=== PATIENT | male | born 2000 | race Caucasian/White ===

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

== ENCOUNTER 2024-07-16 11:42 | Emergency (ER) | payer OTHER, SELFPAY ==
[2024-07-16 12:13] VITALS: BP 142/94; PULSE 70; RESP 16; TEMP 36.6; O2SAT 100
--- NOTE | 2024-07-16 13:01 | ED_ITS ---
HPI - General Adult General Chief complaint: Upper Respiratory Infection Stated complaint: Sore Throat Source: patient Mode of arrival: ambulatory Limitations: no limitations History of Present Illness HPI narrative: Patient presents for evaluation of sore throat. Symptom onset this morning. 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 No fever, chills, cough, SOB, body aches, shortness of breath, nausea, vomiting or diarrhea. He is not taking any medications for his symptoms. He does not smoke. Related Data Allergies Allergy/AdvReac Type Severity Reaction Status Date / Time Penicillins Allergy Rash Verified 07/16/24 12:40 Review of Systems Review of Systems: CONSTITUTIONAL: Denies fever, chills, or sweats. EYES: Denies visual changes, redness, or discharge. ENT: Reports sore throat. Denies rhinorrhea, congestion, or otalgia. CARDIOVASCULAR: Denies chest pain, palpitations, or edema. RESPIRATORY: Denies cough or dyspnea. GASTROINTESTINAL: Denies abdominal pain, nausea, vomiting, or diarrhea. GENITOURINARY: Denies dysuria or hematuria. SKIN: Denies rash or itching. MUSCULOSKELETAL: Denies back pain, joint pain, or myalgia. NEUROLOGIC: Denies headache, numbness, dizziness, or weakness. PSYCHIATRIC: Denies anxiety or depression. 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 HEAD: Normocephalic, atraumatic. EYES: PERRLA and EOMI. ENT: Nares clear, no rhinorrhea or epistaxis. Mucous membranes moist. Posterior pharyngeal erythema without exudate. Uvula is midline. Bilateral TMs pearly bhakta nonbulging NECK: Supple. No adenopathy or masses. No carotid bruits or JVD CHEST: Clear to auscultation. No respiratory distress. No wheezes rales or rhonchi HEART: Regular rate and rhythm. No murmur heard. Normal peripheral pulses. ABDOMEN: Soft, nontender, nondistended, normal active bowel sounds. EXTREMITIES: Normal range of motion. No edema. SKIN: Warm, dry, no rash. NEURO: No focal deficits. Alert and oriented x3. PSYCH: Normal mood and affect. Course Course Emergency Course: This is a 24-year-old male who presented for evaluation of sore throat. Rapid strep positive. Although he has a penicillin allergy, he indicates he can tolerate amoxicillin. Increase hydration. Complete antibiotics as directed. Cepacol lozenges and ibuprofen may help with pain. Follow up with primary provider. Go to the ER for worsening symptoms. Pt in agreement with plan of care. Level of Care: Express Care Visit Vital Signs Vital signs: Vital Signs Temperature 36.6 C 07/16/24 12:13 Pulse Rate 70 07/16/24 12:13 Respiratory Rate 16 07/16/24 12:13 Blood Pressure 142/94 H 07/16/24 12:13 Pulse Oximetry 100 07/16/24 12:13 Temperature 36.6 C 07/16/24 12:13 Pulse Rate 70 07/16/24 12:13 Respiratory Rate 16 07/16/24 12:13 Blood Pressure 142/94 H 07/16/24 12:13 Pulse Oximetry 100 07/16/24 12:13 Medical Decision Making Vital Signs Vital Signs: Vital Signs Temperature 36.6 C 07/16/24 12:13 Pulse Rate 70 07/16/24 12:13 Respiratory Rate 16 07/16/24 12:13 Blood Pressure 142/94 H 07/16/24 12:13 Pulse Oximetry 100 07/16/24 12:13 Temperature 36.6 C 07/16/24 12:13 Pulse Rate 70 07/16/24 12:13 Respiratory Rate 16 07/16/24 12:13 Blood Pressure 142/94 H 07/16/24 12:13 Pulse Oximetry 100 07/16/24 12:13 Lab Data Labs: Lab Results 07/16/24 Range/Units 13:05 POC Grp A Strep Screen Pending Discharge Plan Discharge Clinical Impression: Strep throat Patient Disposition: Home, Self-Care Condition: Stable Instructions: Antibiotic Form, Strep Throat (ED) Additional Instructions: CEPACOL LOZENGES AND IBUPROFEN SHOULD HELP WITH YOUR SYMPTOMS Patient Language: [place] Prescriptions: New amoxicillin 500 mg tablet 500 mg PO Q12H Qty: 20 0RF Follow-up/Referrals: Agus Borden MD [Physician] - Time of Disposition: 12:58
[2024-07-16 13:06] LABS: EDSTREPNEGPOS1 Positive (Negative)
== END 2024-07-16 13:02 | disposition home or self-care (01) ==
PROVIDERS: Emergency Provider Nurse Practitioner
DX: J02.0 Streptococcal pharyngitis (principal)
CPT/HCPCS: 87880; 99213; G0463